=== PATIENT | female | born 1955 | race Caucasian/White ===

== ENCOUNTER 2023-08-06 22:08 | Inpatient (IN) | payer MEDICARE, OTHER ==
[~2023-08-06] VITALS: Ht 157.5 cm; Wt 63.5 kg
[2023-08-06 23:02] LABS: MAGNESIUM 2.1 mg/dL (1.8-2.4); PHOSPHORUS 4.2 mg/dL (2.5-4.9)
[2023-08-06 23:03] LABS: BASOPHILS # (AUTO) 0.1 K/uL (0.0-0.2); BASOPHILS % (AUTO) 1.1 % (0.0-2.0); EOSINOPHILS # (AUTO) 0.2 K/uL (0.0-0.7); EOSINOPHILS % (AUTO) 2.7 % (0.0-6.0); HEMATOCRIT 33 % (33-45); HEMOGLOBIN 10.8 g/dL (11.5-14.8); LYMPHOCYTES # (AUTO) 1.9 K/uL (0.8-4.8); LYMPHOCYTES % (AUTO) 27.4 % (20.0-44.0); MEAN CORPUSCULAR HEMOGLOBIN 31 PG (26.0-33.0); MEAN CORPUSCULAR HGB CONC 33 g/dl (31.0-36.0); MEAN CORPUSCULAR VOLUME 94 fL (82-100); MONOCYTES # (AUTO) 0.6 K/uL (0.1-1.30); MONOCYTES % (AUTO) 7.9 % (2.0-12.0); NEUTROPHILS # (AUTO) 4.3 K/uL (1.8-8.9); NEUTROPHILS % (AUTO) 60.9 % (43.0-81.0); PLATELET COUNT (AUTO) 323 K/uL (150-450); RED BLOOD CELL COUNT(AUTO) 3.52 MIL/uL (4.0-5.2); RED CELL DISTRIBUTION WIDTH 13.4 % (11.5-15.0); WHITE BLOOD COUNT (AUTO) 7.1 K/uL (4.3-11.0)
[2023-08-06 23:10] LABS: CALCIUM, SERUM 8.9 mg/dL (8.5-10.1); CARBON DIOXIDE 18 mmol/L (21-32); CHLORIDE 106 mmol/L (98-107); CREATININE 2.7 mg/dL (0.6-1.3); GLUCOSE 216 mg/dL (74-106); SODIUM SERUM 138 mmol/L (136-145); UREA NITROGEN, BLOOD 54 mg/dL (7-18)
[2023-08-06] MEDS ORDERED: IV NS 0.9% 1,000 ML BAG IV ONE (23:30)
[2023-08-06 23:54] LABS: APPEARANCE,URINE CLEAR (CLEAR); BILIRUBIN,URINE NEGATIVE (NEGATIVE); BLOOD, URINE NEGATIVE Ery/uL (NEGATIVE); COLOR,URINE YELLOW (YELLOW); KETONES,URINE NEGATIVE (NEGATIVE); LEUKOCYTE ESTERASE ,URINE NEGATIVE (NEGATIVE); NITRITE, URINE NEGATIVE (NEGATIVE); PH,URINE 5.5 (5.0-8.0); PROTEIN,URINE 3+ mg/dl (NEGATIVE); UGLUCOSE TRACE mg/dL (NEGATIVE); UROBILINOGEN,URINE 0.2 EU/dL (0.2)
[2023-08-07 00:34] LABS: ADD URINE CULTURE NO; BACTERIA,URINE Few /HPF (None Seen); MUCUS,URINE Many /LPF (None Seen); RBC,URINE NONE SEEN /HPF (0-2); WBC,URINE NONE SEEN /HPF (0-3); YEAST,URINE Rare /HPF (None Seen)
[2023-08-07] MEDS ORDERED: ACETAMINOPHEN 325 MG TABLET PO PRN (02:30)
[2023-08-07] MEDS ORDERED: DEXTROSE 50%-WATER 50 ML DISP.SYRIN IV PRN (02:30)
[2023-08-07] MEDS ORDERED: Z GUARD REMEDY 4 OZ OINT TP PRN (02:30)
[2023-08-07] MEDS ORDERED: MAG HYDROX/AL HYDROX/SIMETH 30 ML UDC PO PRN (02:30)
[2023-08-07] MEDS ORDERED: MAGNESIUM HYDROXIDE 30 ML UDC PO PRN (02:30)
[2023-08-07] MEDS ORDERED: ONDANSETRON HCL/PF 4 MG/2 ML VIAL IVP PRN (02:30)
[2023-08-07] MEDS ORDERED: ZOLPIDEM TARTRATE 5 MG TABLET PO PRN (02:30)
[2023-08-07 04:00] VITALS: BP 118/54; TEMP 97.3; O2SAT 100
[2023-08-07] MEDS: IV NS 0.9% 1,000 ML IV PRN (04:29)
[2023-08-07 05:58] LABS: BASOPHILS % (AUTO) 0.7 % (0.0-2.0); EOSINOPHILS # (AUTO) 0.2 K/uL (0.0-0.7); EOSINOPHILS % (AUTO) 2.4 % (0.0-6.0); HEMATOCRIT 26 % (33-45); HEMOGLOBIN 8.4 g/dL (11.5-14.8); LYMPHOCYTES # (AUTO) 1.6 K/uL (0.8-4.8); MEAN CORPUSCULAR HEMOGLOBIN 31 PG (26.0-33.0); MEAN CORPUSCULAR HGB CONC 32 g/dl (31.0-36.0); MEAN CORPUSCULAR VOLUME 95 fL (82-100); MONOCYTES # (AUTO) 0.6 K/uL (0.1-1.30); MONOCYTES % (AUTO) 8.6 % (2.0-12.0); NEUTROPHILS % (AUTO) 63.3 % (43.0-81.0); PLATELET COUNT (AUTO) 265 K/uL (150-450); RED BLOOD CELL COUNT(AUTO) 2.76 MIL/uL (4.0-5.2); RED CELL DISTRIBUTION WIDTH 13.2 % (11.5-15.0); WHITE BLOOD COUNT (AUTO) 6.4 K/uL (4.3-11.0)
[2023-08-07 06:41] LABS: CALCIUM, SERUM 7.9 mg/dL (8.5-10.1); CREATININE 2.4 mg/dL (0.6-1.3); POTASSIUM 3.9 mmol/L (3.5-5.1)
[2023-08-07] MEDS: BLOOD SUGAR DIAGNOSTIC 1 EACH STRIP IN SCH ×4 (06:57→21:23)
[2023-08-07] MEDS: INSULIN REGULAR, HUMAN 100 UNIT/ML 3 ML VIAL SQ PRN ×3 (06:58→21:26)
[2023-08-07 08:00] VITALS: BP 138/61; TEMP 98.2; O2SAT 97
[2023-08-07 08:01] LABS: THYROID STIMULATING HORMONE 1.155 uIU/mL (0.358-3.74)
[2023-08-07] MEDS: PANTOPRAZOLE 40 MG VIAL IV SCH ×2 (08:12→08:18)
[2023-08-07 10:00] VITALS: BP_SYST 159; BP_SYST 168; BP_SYST 184; BP_DIAS 61; BP_DIAS 65; BP_DIAS 75; TEMP 98.2; TEMP 98.8; O2SAT 97
[2023-08-07] MEDS ORDERED: AMLO1TAB39 PO (10:16)
[2023-08-07] MEDS ORDERED: ROSU20TA2 PO (10:16)
[2023-08-07] MEDS ORDERED: VIT1TABL46 PO (10:16)
[2023-08-07] MEDS ORDERED: CLON0.1T PO (10:16)
[2023-08-07] MEDS ORDERED: RIVA2.5T PO (10:16)
[2023-08-07] MEDS ORDERED: HYDR100T27 PO (10:16)
[2023-08-07] MEDS ORDERED: INSU100I4 SQ (10:16)
[2023-08-07] MEDS ORDERED: PROP20TA7 PO (10:16)
[2023-08-07] MEDS ORDERED: MAGN400T26 PO (10:16)
[2023-08-07] MEDS ORDERED: LEVO100T9 PO (10:16)
[2023-08-07] MEDS ORDERED: FAMO40TA7 PO (10:16)
[2023-08-07] MEDS ORDERED: CILO100T PO (10:16)
[2023-08-07] MEDS ORDERED: CARV12.52 PO (10:16)
[2023-08-07] MEDS ORDERED: DONE10TA44 PO (10:16)
[2023-08-07] MEDS ORDERED: ALPR0.5T8 PO ×2 (10:16)
[2023-08-07] MEDS ORDERED: ERGO500093 PO (10:16)
[2023-08-07] MEDS ORDERED: INSU100I30 SQ (10:16)
[2023-08-07] MEDS ORDERED: ALEN70TA80 PO (10:19)
[2023-08-07] MEDS ORDERED: PATI8.4P PO (10:19)
[2023-08-07] MEDS ORDERED: ASPI-1420 PO (10:19)
[2023-08-07 16:00] VITALS: BP 175/71; TEMP 98.4; O2SAT 98
[2023-08-07] MEDS: RIVAROXABAN 10 MG TABLET PO SCH (17:42)
[2023-08-07] MEDS ORDERED: ALPRAZOLAM 0.5 MG TABLET PO SCH (18:00)
[2023-08-07] MEDS ORDERED: CLONIDINE HCL 0.1 MG TABLET PO PRN (19:30)
[2023-08-07 20:00] VITALS: BP 170/61; TEMP 98.1; O2SAT 97
[2023-08-07 23:40] VITALS: BP 164/69; TEMP 98; O2SAT 96
[2023-08-08 04:00] VITALS: BP 156/71; TEMP 97.6; O2SAT 97
[2023-08-08] MEDS: IV NS 0.9% 1,000 ML IV PRN (04:03)
[2023-08-08 05:45] LABS: BASOPHILS # (AUTO) 0.1 K/uL (0.0-0.2); BASOPHILS % (AUTO) 0.9 % (0.0-2.0); EOSINOPHILS # (AUTO) 0.2 K/uL (0.0-0.7); EOSINOPHILS % (AUTO) 2.9 % (0.0-6.0); HEMATOCRIT 29 % (33-45); HEMOGLOBIN 9.5 g/dL (11.5-14.8); LYMPHOCYTES # (AUTO) 2.6 K/uL (0.8-4.8); LYMPHOCYTES % (AUTO) 40.1 % (20.0-44.0); MEAN CORPUSCULAR HEMOGLOBIN 31 PG (26.0-33.0); MEAN CORPUSCULAR HGB CONC 33 g/dl (31.0-36.0); MEAN CORPUSCULAR VOLUME 94 fL (82-100); MONOCYTES # (AUTO) 0.6 K/uL (0.1-1.30); MONOCYTES % (AUTO) 9.6 % (2.0-12.0); NEUTROPHILS # (AUTO) 3.1 K/uL (1.8-8.9); NEUTROPHILS % (AUTO) 46.5 % (43.0-81.0); PLATELET COUNT (AUTO) 279 K/uL (150-450); RED BLOOD CELL COUNT(AUTO) 3.06 MIL/uL (4.0-5.2); RED CELL DISTRIBUTION WIDTH 13.6 % (11.5-15.0); WHITE BLOOD COUNT (AUTO) 6.6 K/uL (4.3-11.0)
[2023-08-08 06:03] LABS: CALCIUM, SERUM 8.7 mg/dL (8.5-10.1); CREATININE 2.3 mg/dL (0.6-1.3); PHOSPHORUS 4.2 mg/dL (2.5-4.9)
[2023-08-08] MEDS: BLOOD SUGAR DIAGNOSTIC 1 EACH STRIP IN SCH ×3 (06:37→17:03)
[2023-08-08 07:00] VITALS: BP 159/59; TEMP 98.8; O2SAT 99
[2023-08-08] MEDS ORDERED: LEVOTHYROXINE SODIUM 100 MCG TABLET PO SCH (07:30)
[2023-08-08] MEDS: hydrALAZINE HCL 50 MG TABLET PO SCH ×3 (08:26→17:02)
[2023-08-08] MEDS: RIVAROXABAN 10 MG TABLET PO SCH ×2 (08:27→17:03)
[2023-08-08] MEDS ORDERED: CLONIDINE HCL 0.1 MG TABLET PO PRN (08:30)
[2023-08-08] MEDS ORDERED: ALPRAZOLAM 0.5 MG TABLET PO SCH (09:00)
[2023-08-08] MEDS ORDERED: DONEPEZIL 5 MG TABLET PO SCH (09:00)
[2023-08-08] MEDS ORDERED: CLONIDINE HCL 0.1 MG TABLET PO SCH (09:00)
[2023-08-08] MEDS ORDERED: NITROGLYCERIN 30 GM TUBE TP SCH (09:00)
[2023-08-08] MEDS ORDERED: PANTOPRAZOLE 40 MG TABLET.DR PO SCH (09:00)
[2023-08-08] MEDS ORDERED: ASPIRIN EC 81 MG TABLET.DR PO SCH (09:00)
[2023-08-08] MEDS: CARVEDILOL 12.5 MG TABLET PO SCH ×2 (09:42→17:02)
[2023-08-08 12:00] VITALS: BP 145/54; TEMP 97.9; O2SAT 96
[2023-08-08 12:04] VITALS: BP 159/59; TEMP 98.8; O2SAT 99
[2023-08-08] MEDS: INSULIN REGULAR, HUMAN 100 UNIT/ML 3 ML VIAL SQ PRN (12:57)
[2023-08-08 17:02] VITALS: BP 165/59
[2023-08-08] MEDS ORDERED: ALPRAZOLAM 0.25 MG TABLET PO PRN (20:00)
[2023-08-09] MEDS ORDERED: ALENDRONATE 70 MG TABLET PO SCH (11:00)
== END 2023-08-08 17:54 | disposition home or self-care (01) | DRG 640 ==
LOC: ER 22:09 → TELE 08-07 02:18
PROVIDERS: ADMIT Internal Medicine; ATTEND Internal Medicine
DX: E86.0 Dehydration (principal); N17.0 Acute kidney failure with tubular necrosis; N18.4 Chronic kidney disease, stage 4 (severe); E11.22 Type 2 diabetes mellitus with diabetic chronic kidney disease; I12.9 Hypertensive chronic kidney disease with stage 1 through stage 4 chronic kidney disease, or unspecified chronic kidney disease; E11.65 Type 2 diabetes mellitus with hyperglycemia; D64.9 Anemia, unspecified; E03.9 Hypothyroidism, unspecified; E78.5 Hyperlipidemia, unspecified; E87.20 Acidosis, unspecified; F03.90 Unspecified dementia, unspecified severity, without behavioral disturbance, psychotic disturbance, mood disturbance, and anxiety; R32 Unspecified urinary incontinence; Z79.4 Long term (current) use of insulin
CPT/HCPCS: 36415; 70450-TC; 71045-TC; 76770-TC; 80048-TC; 80061-TC; 81001; 82550-TC; 82962-TC; 83735-TC; 84100-TC; 84443-TC; 84484-TC; 85025-TC; 87086-TC; 93307-TC; 97116-TC; 97530-TC; C9113; G0378; J1815; J7030